=== PATIENT | female | born 1990 | race Caucasian/White ===

== ENCOUNTER 2016-11-30 18:19 | Emergency (ER) | payer MEDICAID ==
[2016-11-30 18:23] VITALS: O2SAT 100; BMI 25.2
--- NOTE | 2016-11-30 18:35 | C.PDOC ---
History Of Present Illness 26 year old patient, with a past medical history of asthma, presents to the ED complaining of pain to the right side of her incision. Patient states she had a on 11/06/16. Patient reports the pain started two days ago, but became worse yesterday. The pain comes only when she is standing and moving around. She describes as a burning sensation. She has no pain while lying down. There were no complications during the and this is her second. + mild vaginal spotting since the c/s. Patient denies fever, chills, nausea, vomiting, diarrhea, dysuria, or vaginal discharge. Time Seen by Provider: 11/30/16 18:35 Chief Complaint (Nursing): Abdominal Pain History Per: Patient History/Exam Limitations: no limitations Onset/Duration Of Symptoms: Days (2), Worse Since (yesterday) Current Symptoms Are (Timing): Still Present Context: Other Severity: Mild Pain Scale Rating Of: 3 Location Of Pain/Discomfort: Other (in the RLQ area) Radiation Of Pain To:: None Quality Of Discomfort: Burning, "Pain" Exacerbating Factors: Upright Position Alleviating Factors: None Last Bowel Movement: Today Recent travel outside of the [place]: No Past Medical History Reviewed: Historical Data, Nursing Documentation, Vital Signs Vital Signs: Last Vital Signs Temp 98.2 F 11/30/16 20:11 Pulse 69 11/30/16 20:11 Resp 16 11/30/16 20:11 BP 123/73 11/30/16 20:11 Pulse Ox 100 11/30/16 20:11 - Medical History PMH: Asthma - [facility] Procedures EXTRACTION OF POC, LOW CERVICAL, OPEN APPROACH (11/06/16) MONITORING NOS (07/20/14) INJECT RH IMMUNE GLOBUL (12/14/13) LOW CERVICAL (07/20/14) Family History: States: Unknown Family Hx - Social History Hx Tobacco Use: No Hx Alcohol Use: No Hx Substance Use: No - Immunization History Hx Tetanus Toxoid Vaccination: Yes Hx Influenza Vaccination: No Hx Pneumococcal Vaccination: No Review Of Systems Except As Marked, All Systems Reviewed And Found Negative. Constitutional: Negative for: Fever, Chills Gastrointestinal: Positive for: Abdominal Pain. Negative for: Nausea, Vomiting , Diarrhea Genitourinary: Positive for: Vaginal Bleeding (spotting). Negative for: Dysuria , Vaginal Discharge Physical Exam - Physical Exam Appears: Non-toxic, No Acute Distress Skin: Warm, Dry Head: Atraumatic, Normacephalic Eye(s): bilateral: Normal Inspection, PERRL, EOMI Oral Mucosa: Moist Throat: Normal Neck: Normal ROM, Supple Chest: Symmetrical Cardiovascular: Rhythm Regular Respiratory: Normal Breath Sounds, No Rales, No Rhonchi, No Wheezing Gastrointestinal/Abdominal: Soft, No Guarding, No Rebound, Other (well healing surgical incision in the suprapubic region with (-)erythema (-)drainage (+) tenderness to the superior aspect of the right edge of the incision. otherwise no abdominal pain) Back: Normal Inspection, No CVA Tenderness Extremity: Normal ROM Neurological/Psych: Oriented x3, Normal Speech, Normal Cognition Gait: Steady ED Course And Treatment - Laboratory Results Result Diagrams: 11/30/16 19:02 11/30/16 19:02 O2 Sat by Pulse Oximetry: 100 (RA) Pulse Ox Interpretation: Normal Medical Decision Making Medical Decision Making: the pt denied need for pain medication [address] Crespo came and evaluated the pt in the ED. He says patient is ok for dc and to follow up in the office this week. the pt is agreeable to this plan. she will return if no improvement in 2 days or for any worsening symptoms. Disposition - Disposition Referrals: Jacob Wesley MD [Staff Provider] - Disposition: HOME/ ROUTINE Disposition Time: 19:50 Condition: GOOD Additional Instructions: Please follow up with your OBGYN doctor this week. Take tylenol or ibuprofen for pain. Return to the ER for any worsening symptoms or for any other concerns. Forms: General Discharge Instructions - Clinical Impression Clinical Impression: Pain at surgical incision - Scribe Statement The provider has reviewed the documentation as recorded by the Scribe Yvonne Arechiga Provider Attestation: All medical record entries made by the Scribe were at my direction and personally dictated by me. I have reviewed the chart and agree that the record accurately reflects my personal performance of the history, physical exam, medical decision making, and the department course for this patient. I have also personally directed, reviewed, and agree with the discharge instructions and disposition.
[2016-11-30 19:06] LABS: BASO # 0.1 K/uL (0.0-0.2); BASO % 0.8 % (0.0-2.0); EOS # 0.3 K/uL (0.0-0.7); EOS % 3.2 % (0.0-4.0); HEMATOCRIT 39.7 % (34.0-47.0); LYMPH # 2.4 K/uL (1.0-4.3); LYMPH % 23.1 % (20.0-40.0); MEAN CELL VOLUME 86.2 fL (81.0-99.0); MEAN CORPUSCULAR HGB CONC 32.4 g/dL (33.0-37.0); MONO # 0.8 K/uL (0.0-0.8); MONO % 7.9 % (0.0-10.0); RED CELL DISTRIBUTION WIDTH 16.7 % (11.5-14.5); WHITE BLOOD COUNT 10.2 K/uL (4.8-10.8)
[2016-11-30 19:13] LABS: CHLORIDE 101 mmol/L (98-107)
[2016-11-30 19:14] LABS: POTASSIUM 4.2 mmol/L (3.6-5.2); SODIUM 140 mmol/L (132-148)
[2016-11-30 19:16] LABS: ALB/GLOB RATIO 1.2 (1.0-2.1); AST/SGOT 22 U/L (14-36); BILIRUBIN,TOTAL 0.3 mg/dL (0.2-1.3); BLOOD UREA NITROGEN 14 mg/dL (7-17); CARBON DIOXIDE 24 mmol/L (22-30); GFR AFRICAN-AMERICAN > 60; TOTAL PROTEIN 6.9 g/dL (6.3-8.3)
[2016-11-30 19:17] LABS: ALKALINE PHOSPHATASE 71 U/L (38-126); ALT/SGPT 30 U/L (9-52); CALCIUM 9.1 mg/dl (8.6-10.4); GLUCOSE,RANDOM 86 mg/dL (65-105)
[2016-11-30 19:31] LABS: RBC URINE 2 /hpf (0-3); URINE BILIRUBIN NEGATIVE (NEGATIVE); URINE BLOOD NEGATIVE (NEGATIVE); URINE COLOR Yellow (YELLOW); URINE GLUCOSE (UA) NORMAL (Normal); URINE KETONE NEGATIVE (NEGATIVE); URINE LEUKOCYTE ESTERASE 2+ Leu/uL (Negative); URINE PROTEIN NEGATIVE (NEGATIVE); URINE UROBILINOGEN NORMAL mg/dL (0.2-1.0); WBC URINE 18 /hpf (0-5)
[2016-11-30 20:11] VITALS: BP 123/73; PULSE 69; RESP 16; TEMP 98.2
== END 2016-11-30 20:12 | disposition home or self-care (01) ==
LOC: C.ER 18:19
DX: G89.18 Other acute postprocedural pain (principal)